=== PATIENT | male | born 1990 | race African-American/Black ===

== ENCOUNTER 2023-05-02 23:16 | Emergency (ER) | payer MEDICAID ==
[~2023-05-02] VITALS: Ht 172.7 cm; Wt 78.8 kg
[2023-05-02 23:49] VITALS: BP 126/76; PULSE 99; RESP 18; TEMP 98.6; O2SAT 98
[2023-05-03] MEDS ORDERED: CLIN-194 MT (02:07)
[2023-05-03 02:30] LABS: CLARITY URINE CLEAR (CLEAR); COLOR URINE YELLOW (YELLOW); GLUCOSE URINE NEGATIVE (NEGATIVE); KETONES URINE 1+ (NEGATIVE); LEUKOCYTE ESTERASE URINE TRACE (NEGATIVE); NITRITE URINE NEGATIVE (NEGATIVE); OCCULT BLOOD URINE NEGATIVE (NEGATIVE); PROTEIN URINE TRACE (NEGATIVE); SPECIFIC GRAVITY URINE 1.028 (1.005-1.030)
[2023-05-03 04:24] LABS: BACTERIA URINE TRACE; RBC URINE NONE SEEN /hpf (0-2); SQUAMOUS EPITHELIAL CELL URINE FEW /lpf (RARE/1+); WBC URINE 0-2 /hpf (0-2)
== END 2023-05-03 02:45 | disposition home or self-care (01) ==
LOC: ER 23:16
DX: L02.01 Cutaneous abscess of face (principal)
CPT/HCPCS: 81003; 99283